=== PATIENT | female | born 1985 | race Two or more races ===

== ENCOUNTER 2023-04-29 11:39 | Emergency (ER) | payer SELFPAY ==
[~2023-04-29] VITALS: Ht 162.6 cm; Wt 103.3 kg
[2023-04-29 11:59] VITALS: BP 139/84; PULSE 82; RESP 15; O2SAT 97
== END 2023-04-29 14:48 | disposition left against medical advice (07) ==
LOC: ER 11:39
DX: R05.9 Cough, unspecified (principal); R09.89 Other specified symptoms and signs involving the circulatory and respiratory systems; Z53.21 Procedure and treatment not carried out due to patient leaving prior to being seen by health care provider

== ENCOUNTER 2023-05-02 18:00 | Emergency (ER) | payer MEDICAID, OTHER ==
[~2023-05-02] VITALS: Ht 162.6 cm; Wt 103.4 kg
[2023-05-02 18:12] VITALS: BP 138/95; PULSE 91; RESP 17; O2SAT 96
[2023-05-02 18:50] LABS: Basophils # (auto) 0.1 10 ^3/uL (0-0.2); Basophils % (auto) 0.7 % (0.0-2.0); Eosinophils # (auto) 0.2 10 ^3/uL (0-0.8); Eosinophils % (auto) 2.4 % (0.0-7.0); Hematocrit 42.8 % (36.0-46.0); Hemoglobin 14.1 g/dL (12.2-16.2); Lymphocytes # (auto) 2.2 10 ^3/uL (0.4-5.4); Lymphocytes % (auto) 25.8 % (10.0-50.0); Mean Corpuscular Hemoglobin 26.2 pg (28.0-32.0); Mean Corpuscular Hgb Conc. 32.9 g/dL (32.0-36.0); Mean Corpuscular Volume 79.5 fL (80.0-100.0); Monocytes # (auto) 0.5 10 ^3/uL (0-1.3); Monocytes % (auto) 5.8 % (0.0-12.0); Neutrophils # (auto) 5.6 10 ^3/uL (1.6-8.6); Neutrophils % (auto) 65.3 % (37.0-80.0); Nucleated Red Blood Cells % 0.1 %; Red Blood Cells 5.38 10^6/uL (4.0-5.20); Red Cell Distribution Width 13.9 % (11.8-14.3); White Blood Cell 8.6 10^3/uL (4.4-10.8)
[2023-05-02 18:58] LABS: Alanine Aminotransferase 63 U/L (7-40); Alkaline Phosphatase 101 U/L (46-116); Anion Gap 8 (5-15); BUN/Creatinine Ratio 12.7 (10.0-20.0); Blood Urea Nitrogen 10 mg/dL (9-23); Calcium 9.6 mg/dL (8.7-10.4); Carbon Dioxide 26 mmol/L (20-30); Chloride 106 mmol/L (98-107); Glucose 79 mg/dL (74-106); Potassium 3.5 mmol/L (3.5-5.1); Sodium 140 mmol/L (136-145)
[2023-05-02 18:59] LABS: Albumin 4.8 g/dL (3.2-4.8); Aspartate Aminotransferase 35 U/L (13-40); Bilirubin, Total 0.8 mg/dL (0.2-1.0); Total Protein 7.7 g/dL (5.7-8.2)
[2023-05-02 19:04] LABS: Urine Bacteria NONE SEEN /hpf (None Seen); Urine Blood Negative /uL (Negative); Urine Clarity HAZY (Clear); Urine Color Yellow (Yellow); Urine Hyaline Cast FEW /lpf (0 - 2); Urine Mucus FEW (None Seen); Urine Protein, UAD TRACE (Negative); Urine Specific Gravity 1.025 (1.001-1.035); Urine Urobilinogen Normal (Negative); Urine WBC 18 /hpf (0 - 5); Urine pH 6.5 (5.0-8.0)
[2023-05-02] MEDS ORDERED: TAMSULOSIN HYDROCHLORIDE 0.4 MG CAP PO ONE (20:15)
[2023-05-02] MEDS ORDERED: SODIUM CHLORIDE 0.9% 1,000 ML IV ONE (20:15)
[2023-05-02] MEDS ORDERED: cefTRIAXone 1GM/50ML D5W 50 ML IV ONE (20:15)
[2023-05-02] MEDS ORDERED: ONDANSETRON ODT 4 MG TAB PO ONE (20:15)
[2023-05-02] MEDS ORDERED: HYDROcodone-ACET 5/325MG TAB PO ONE (20:15)
[2023-05-02] MEDS ORDERED: TAMS-35 PO (22:14)
[2023-05-02] MEDS ORDERED: CEPH500C PO (22:14)
[2023-05-02] MEDS ORDERED: HYDR-4902 PO (22:14)
[2023-05-02] MEDS ORDERED: ZOFR4T PO (22:14)
== END 2023-05-02 23:04 | disposition home or self-care (01) ==
LOC: ER 18:00
DX: N20.0 Calculus of kidney (principal); N39.0 Urinary tract infection, site not specified; K80.20 Calculus of gallbladder without cholecystitis without obstruction; D25.9 Leiomyoma of uterus, unspecified; R07.89 Other chest pain; Z79.899 Other long term (current) drug therapy
CPT/HCPCS: 36415; 71046; 74176; 80053; 81001; 85025; 96365; 99285; J0696; J7030; Q0162

== ENCOUNTER 2024-04-26 18:18 | Emergency (ER) | payer SELFPAY ==
[~2024-04-26] VITALS: Ht 162.6 cm; Wt 104.0 kg
[~2024-04-26 18:18] MED LIST: CEPH500C PO; HYDR-4902 PO; TAMS-35 PO; ZOFR4T PO
[2024-04-26 19:03] VITALS: BP 138/82; PULSE 87; RESP 16; TEMP 99; O2SAT 99
[2024-04-26] MEDS ORDERED: AMOX875T4 PO (20:34)
[2024-04-26] MEDS ORDERED: ACET500T58 PO (20:34)
== END 2024-04-26 20:50 | disposition home or self-care (01) ==
LOC: ER 18:18
DX: H66.92 Otitis media, unspecified, left ear (principal); R59.0 Localized enlarged lymph nodes; Z79.899 Other long term (current) drug therapy

== ENCOUNTER 2025-03-17 18:46 | Emergency (ER) | payer BC, MEDICAID ==
[~2025-03-17] VITALS: Ht 162.6 cm; Wt 100.9 kg
[~2025-03-17 18:46] MED LIST changes: +ACET500T58 PO; +AMOX875T4 PO
--- NOTE | 2025-03-17 18:58 | ECG ---
[facility] Test Date: 2025-03-17 Test Time: 18:50:59 Pat Name: FREDRICK REES Department: [facility] ED Patient ID: [id number] Room: Gender: F Metal Building Assembler: gp : 1985 Requested By: EMERGENCY EMERGENCY Order Number: [id number] Reading MD: Richie De Leon Measurements Intervals [place] Rate: 89 P: 71 DE: 158 QRS: 83 QRSD: 96 T: 70 QT: 367 QTc: 447 Interpretive Statements Sinus rhythm Low voltage, precordial leads Consider anterior infarct Baseline wander in lead(s) V2 Electronically Signed On 03-21-2025 9:34:22 PDT by Richie De Leon Please click the below link to view image of tracing.
[2025-03-17 20:12] LABS: Hematocrit 41.9 % (36.0-46.0); Hemoglobin 14.4 g/dL (12.2-16.2); Mean Corpuscular Hemoglobin 26.8 pg (28.0-32.0); Mean Corpuscular Volume 78.0 fL (80.0-100.0); Nucleated Red Blood Cells % 0.0 %
[2025-03-17 20:15] LABS: Chloride 105 mmol/L (98-107); Sodium 140 mmol/L (136-145)
[2025-03-17 20:16] LABS: Anion Gap 10 (5-15); Calcium 9.3 mg/dL (8.7-10.4); Carbon Dioxide 25 mmol/L (20-31)
[2025-03-17 20:21] LABS: BUN/Creatinine Ratio 12.2 (10.0-20.0)
[2025-03-17 20:22] LABS: Blood Urea Nitrogen 9 mg/dL (9-23); Glucose 115 mg/dL (74-106); Potassium 3.4 mmol/L (3.5-5.1)
--- NOTE | 2025-03-17 20:34 | ED.PDOC ---
History of Present Illness HPI Comments 39 y/o obese F presents with c/c chest and left shoulder pain, lightheadedness, and shortness of breath. Patient endorses on 1x day history of symptoms following unprovoked and atraumatic onset. No pertinent medical, surgical, family, or social history. Denies any palpitations, dizziness, nausea, vomiting, or further associated symptoms. Chief Complaint: Chest Pain Time Seen by MD: 20:00 Primary Care Provider: UNKNOWN Reviewed Notes: Nurses Notes, Medications, Allergies Allergies: Coded Allergies: NO KNOWN ALLERGIES (Unverified , 04/29/23) Home Meds Active Scripts Amoxicillin & Pot Clavulanate (Amoxicillin/Potassium Cla) 875 Mg Tab, 1 TAB PO BID for 7 Days, #14 TAB 0 Refills Prov:AMIRA LISA 04/26/24 Acetaminophen (Acetaminophen) 500 Mg Tab, 500 MG PO Q4HPRN, #30 TAB 0 Refills Prov:AMIRA LISA 04/26/24 Tamsulosin Hcl (Flomax) 0.4 Mg Cap, 1 CAP PO DAILY for 7 Days, #7 CAP 11 Refills Prov:KEVIN CHILDERS Q CATERPILLAR TRACTOR OPERATOR 05/02/23 Cephalexin Monohydrate (Cephalexin) 500 Mg Cap, 1 CAP PO QID for 10 Days, #40 CAP Prov:KEVIN CHILDERS Q CATERPILLAR TRACTOR OPERATOR 05/02/23 Ondansetron Odt 4MG Tab (ZOFRAN PO) 4 Mg Tb, 1 TAB PO Q8HR, #12 TAB ODT TAB-DISSOLVE IN MOUTH, THEN SWALLOW as needed for nausea vomiting Prov:KEVIN CHILDERS Q CATERPILLAR TRACTOR OPERATOR 05/02/23 Hydrocodone-Acetaminophen (Hydrocodone Bitartrate/AC 5-325 mg) 1 Tab Tab, 1 TAB PO Q6HR, #12 TAB as needed for pain Prov:KEVIN CHILDERS Q CATERPILLAR TRACTOR OPERATOR 05/02/23 Information Source: Patient Mode of Arrival: Ambulatory Past Medical History PAST MEDICAL HISTORY: Denies Surgical History: Denies all surgeries BUSINESS REPRESENTATIVE History: No Pertinent BUSINESS REPRESENTATIVE History Family History Family History: Unknown Social History Smoker: Non-Smoker Alcohol: Denies ETOH Use Drugs: Denies Drug Use Lives In: Home All Other Systems: Reviewed and Negative (Comprehensive systems review obtained and negative except for what is stated in the HPI.) Physical Exam General Appearance: No Apparent Distress, Obese HEENT: Normal ENT Inspection, Pharynx Normal, TMs Normal Neck: Full Range of Motion, Non-Tender, Normal, Normal Inspection Respiratory: Chest Non-Tender, Lungs Clear, No Accessory Muscle Use, No Respiratory Distress, Normal Breath Sounds Cardiovascular: No Edema, No JVD, No Murmur, No Gallop, Normal Peripheral Pulses, Regular Rate/Rhythm Breast Exam: Deferred Gastrointestinal: No Organomegaly, Non Tender, No Pulsatile Mass, Normal Bowel Sounds, Soft Genitalia: Deferred Pelvic: Deferred Rectal: Deferred Extremities: No calf tenderness, Normal capillary refill, Normal inspection, Normal range of motion, Non-tender, No pedal edema Musculoskeletal : Apperance: Normal Neurologic: Alert, psychological stress evaluator II-XII nml as Tested, No Motor Deficits, Normal Affect, Normal Mood, No Sensory Deficits Cerebellar Function: Normal Reflexes: Normal Skin: Dry, Normal Color, Warm Lymphatic: No Adenopathy Was a procedure done? Was a procedure done?: No EKG EKG : Pulse Rate (adult): 89 [place]: Normal Cardiac Rhythm: NSR Block: None Hypertrophy: None ST: Normal Differential Dx Considerations may include: CT, PE, ACS, URI, PNA, angina, anxiety, among others X-Ray, Labs, Meds, VS Vital Signs Date Time Temp Pulse Resp B/P (MAP) Pulse Ox O2 Delivery O2 Flow Rate FiO2 03/17/25 22:22 64 19 100 Room Air 03/17/25 22:22 98.4 64 19 129/81 (97) 100 98.4 03/17/25 20:34 89 03/17/25 18:51 98.5 95 18 138/91 97 98.5 03/17/25 18:50 89 Lab Test 03/17/25 22:00 03/17/25 20:24 03/17/25 18:57 Range/Units Urine Color Light-yellow Yellow Urine Clarity Clear Clear Urine pH 6.5 5.0-9.0 Urine Specific [place] 1.025 1.001-1.035 Urine Protein Negative Negative Urine Ketones Negative Negative Urine Blood Negative Negative /uL Urine Nitrite Negative Negative Urine Bilirubin Negative Negative Urine Urobilinogen Normal Negative mg/dL Urine Leukocyte Esterase Trace Negative /uL Urine RBC 2 0 - 4 /hpf Urine Microscopic WBC < 1 0-5 /HPF Urine Squamous Epithelial Cells Mod <5 /hpf Urine Bacteria None seen None Seen /hpf Urine Mucus Few None Seen Urine Glucose Normal Normal mg/dL Urine Test Negative Negative Troponin I High Sensitivity < 3 L < 3 L </=34 ng/L White Blood Count 9.1 4.4-10.8 10^3/uL Red Blood Count 5.37 H 4.0-5.20 10^6/uL Hemoglobin 14.4 12.2-16.2 g/dL Hematocrit 41.9 36.0-46.0 % Mean Corpuscular Volume 78.0 L 80.0-100.0 fL Mean Corpuscular Hemoglobin 26.8 L 28.0-32.0 pg Mean Corpuscular Hemoglobin Concent 34.3 32.0-36.0 g/dL Red Cell Distribution Width 13.6 11.8-14.3 % Platelet Count 213 140-450 10^3/uL Mean Platelet Volume 9.5 6.9-10.8 fL Neutrophils (%) (Auto) 63.2 37.0-80.0 % Lymphocytes (%) (Auto) 26.5 10.0-50.0 % Monocytes (%) (Auto) 6.5 0.0-12.0 % Eosinophils (%) (Auto) 3.0 0.0-7.0 % Basophils (%) (Auto) 0.8 0.0-2.0 % Neutrophils # (Auto) 5.7 1.6-8.6 10 ^3/uL Lymphocytes # (Auto) 2.4 0.4-5.4 10 ^3/uL Monocytes # (Auto) 0.6 0-1.3 10 ^3/uL Eosinophils # (Auto) 0.3 0-0.8 10 ^3/uL Basophils # (Auto) 0.1 0-0.2 10 ^3/uL Nucleated Red Blood Cells 0.0 % Sodium Level 140 136-145 mmol/L Potassium Level 3.4 L 3.5-5.1 mmol/L Chloride Level 105 98-107 mmol/L Carbon Dioxide Level 25 20-31 mmol/L Anion Gap 10 5-15 Blood Urea Nitrogen 9 9-23 mg/dL Creatinine 0.74 0.550-1.02 mg/dL Glomerular Filtration Rate Calc 105 >90 mL/min BUN/Creatinine Ratio 12.2 10.0-20.0 Serum Glucose 115 H 74-106 mg/dL Calcium Level 9.3 8.7-10.4 mg/dL [facility] [id number] [facility] [address] Ph: [phone] DIAGNOSTIC IMAGING Diagnostic Imaging Report : [id number] Signed PATIENT: FREDRICK REES ACCT: [id number] UNIT: [id number] : 1985 LOC: ER ROOM / BED: / AGE / SEX: 39 / F ADM STATUS: REG ER SERVICE 02 ORDERING PHYSICIAN: MIKE GONZALEZ MD PROCEDURE(s): CXR1 - CHEST XRAY 1 VIEW REASON: cp ORDER NUMBER(s): [id number], ACCESSION NUMBER(s): [id number] CHEST RADIOGRAPH Indication: cp Technique: 1 view Comparison: 05/02/2023 FINDINGS: Lines and Tubes: None Lungs/Pleura: No focal consolidation, pleural effusion or pneumothorax. Cardiomediastinum: Unremarkable. Other: No acute osseous abnormality. IMPRESSION: 1. No acute cardiopulmonary abnormality. ATED BY: DENNIS RAINES MD DICTATED DATE/TIME: 03/17/252040 SIGNED BY: DENNIS RAINES MD SIGNED DATE/TIME: 03/17/252040 CC: Time of 1ST Reevaluation: 20:30 Reevaluation 1ST: Unchanged Patient Education/Counseling: Diagnosis, Treatment, Need For Follow Up Family Education/Counseling: No Family Present Comments Patient was recently diagnosed with PE. . She has underlying malignancy. She is on Eliquis. However her new onset of left shoulder pain with shortness of breath it makes me concerned of unstable angina. Her workup currently is unremarkable but she will be admitted for further evaluation. Additional Information Previous visits: N/A The following tests were ordered, and results were reviewed by me: CXR, CBC, BMP, UA, EKG, test, troponin Additional Information was gathered from interviewing the following independent historians: N/A I reviewed and agreed with the following test results read by other providers: CXR I discussed treatment and results with medical personnel and: patient SEPSIS Sepsis Screen Date sepsis recognized/suspect: Mar 17, 2025 Time Sepsis recognized/suspect: 1850 Recent Procedure: No On Antibiotic Therapy: No Respiratory Rate >20: No Heart Rate >90: Yes Temp<36 C (96.8 F) or >38.3 C: No SBP <90 or MAP <65 mmHG: No New Acute Mental Status Change: No Is the patient on CPAP, BIPAP,: No Physician Orders Electrocardigram (03/17/25 19:56) Electrocardigram (03/17/25 21:56) Chest Xray 1 View (03/17/25 20:03) Continuous Ekg Monitoring 08,12,16,20,00,04 (03/17/25 20:03) Vital Signs Date Time Temp Pulse Resp B/P (MAP) Pulse Ox O2 Delivery O2 Flow Rate FiO2 03/17/25 22:22 64 19 100 Room Air 03/17/25 22:22 98.4 64 19 129/81 (97) 100 98.4 03/17/25 20:34 89 03/17/25 18:51 98.5 95 18 138/91 97 98.5 03/17/25 18:50 89 Laboratory Tests Test 03/17/25 18:57 White Blood Count 9.1 10^3/uL (4.4-10.8) Departure 1 Departure Time of Disposition: 00:39 Impression: Primary Impression: Unstable angina Disposition: ADMITTED INPATIENT Admit to: Tele Condition: Serious Discharged With: Self Critical Care Note Critical Care Time?: Yes (55 min-critical care time only) Critical care comment: Due to concerns for patients condition deteriorating, the care required my highest level of attention and readiness to intervene. I assessed the patient, reviewed the medical records, ordered the appropriate tests and treatments, then reassessed for results and responsiveness. I communicated with medical personnel and consultants and formulated a plan of care. Total critical care time excludes any procedures Stability Stability form required: No Heart Score Heart Score: Heart Score Response (Comments) Value History Highly Suspicious 2 EKG Repolarization Disturb 1 Age 45-64 1 Risk Factors No known risk factors 0 Troponin Normal limit 0 Total 4 I personally scribed for MIKE GONZALEZ MD ([email or web address]) on 03/17/25 at 20:34. Electronically submitted by Shoaib Stern ([email or web address]). I personally scribed for MIKE GONZALEZ MD ([email or web address]) on 03/17/25 at 21:07. Electronically submitted by Shoaib Stern ([email or web address]). MIKE GONZALEZ MD Mar 17, 2025 20:34
--- NOTE | 2025-03-17 20:43 | DVH ---
CHEST RADIOGRAPH Indication: cp Technique: 1 view Comparison: 05/02/2023 FINDINGS: Lines and Tubes: None Lungs/Pleura: No focal consolidation, pleural effusion or pneumothorax. Cardiomediastinum: Unremarkable. Other: No acute osseous abnormality. IMPRESSION: 1. No acute cardiopulmonary abnormality.
[2025-03-17 22:22] VITALS: BP 129/81; PULSE 64; RESP 19; TEMP 98.4; O2SAT 100
[2025-03-17 22:46] LABS: Urine Protein, UAD Negative (Negative)
== END 2025-03-18 01:45 | disposition left against medical advice (07) ==
LOC: ER 18:51
DX: I20.0 Unstable angina (principal); Z79.01 Long term (current) use of anticoagulants; Z79.899 Other long term (current) drug therapy
CPT/HCPCS: 36415; 71045; 80048; 81001; 81025; 84484; 85025; 93005